=== PATIENT | female | born 1990 | race Hispanic/Latino ===

== ENCOUNTER 2019-01-30 04:08 | Observation (INO) | payer OTHER ==
[2019-01-30 05:39] LABS: Basophils % (Auto) 0.3 % (0.0-1.8); Eosinophils # (Auto) 0.2 K/mm3 (0.0-0.4); Eosinophils % (Auto) 3.3 % (0.0-4.3); Hematocrit 40.4 % (30.3-42.9); Hemoglobin 13.9 gm/dl (10.1-14.3); Lymphocytes # (Auto) 1.9 K/mm3 (1.2-5.4); Lymphocytes % (Auto) 27.7 % (13.4-35.0); Mean Corpuscular HGB Conc 34 % (30-34); Mean Corpuscular Volume 91 fl (79-97); Monocytes # (Auto) 0.7 K/mm3 (0.0-0.8); Monocytes % (Auto) 10.1 % (0.0-7.3); Platelet Count 253 K/mm3 (140-440); Red Blood Count 4.45 M/mm3 (3.65-5.03); Red Cell Distribution Width 12.5 % (13.2-15.2)
[2019-01-30 05:58] LABS: BUN/Creatinine Ratio 20; Blood Urea Nitrogen 14 mg/dL (7-17); Calcium 8.9 mg/dL (8.4-10.2); Hemolysis Index 2
[2019-01-30] MEDS ORDERED: NITROGLYCERIN 2% OINT 1 GM TP ONE (06:18)
[2019-01-30] MEDS ORDERED: ASPIRIN 325 MG TAB PO ONE (06:18)
--- NOTE | 2019-01-30 06:24 | Emergency Department Report ---
HPI - General Chief Complaint: Chest Pain Time Seen by Provider: 01/30/19 06:09 - [facility] HPI: Room 7 The patient is a 28-year-old female presented with a chief complaint of chest pain. Patient states last evening at 22:00 she was awakened with pain in her back and left chest numbness radiating to the left upper extremity. Patient's describes her left chest pain is pressure like and intermittent in nature. Patient states she became short of breath with the pain but denies nausea/vomiting or diaphoresis. The patient states she took an aspirin but was unable to sleep. 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 Uterin tumor removed - Family History Family history: no significant - Social History Smoking Status: Former Smoker (none 12 years) Substance Use Type: None (denies illicit drug use), Alcohol (occasional) ED Review of Systems ROS: Stated complaint: CP/L SHOULDER PAIN Other details as noted in HPI Constitutional: denies: diaphoresis Eyes: denies: eye pain ENT: denies: throat pain Respiratory: shortness of breath Cardiovascular: chest pain Endocrine: no symptoms reported Gastrointestinal: denies: nausea, vomiting Genitourinary: denies: dysuria Musculoskeletal: back pain Neurological: denies: headache Physical Exam - Physical Exam Vital Signs: Vital Signs 01/30/19 05:25 Temperature 97.6 F Pulse Rate 68 Respiratory 15 Rate Blood Pressure 122/78 [Right] O2 Sat by Pulse 99 Oximetry Physical Exam: GENERAL: The patient is well-developed well-nourished female on a stretcher not appearing to be in acute distress. [] HEENT: Normocephalic. Atraumatic. Extraocular motions are intact. Patient has moist mucous membranes. NECK: Supple. Trachea midline CHEST/LUNGS: Clear to auscultation. There is no respiratory distress noted. HEART/CARDIOVASCULAR: Regular. There is no tachycardia. There is no gallop rub or murmur. 2+ left radial pulse ABDOMEN: Abdomen is soft, nontender. Patient has normal bowel sounds. There is no abdominal distention. SKIN: There is no rash. There is no edema. There is no diaphoresis. NEURO: The patient is awake, alert, and oriented. The patient is cooperative. The patient has no focal neurologic deficits. The patient has normal speech MUSCULOSKELETAL: There is no evidence of acute injury. ED Course Vital Signs 01/30/19 05:25 Temperature 97.6 F Pulse Rate 68 Respiratory 15 Rate Blood Pressure 122/78 [Right] O2 Sat by Pulse 99 Oximetry ED Medical Decision Making - Lab Data Result diagrams: 01/30/19 05:06 01/30/19 05:06 Laboratory Tests 01/30/19 01/30/19 01/30/19 05:06 05:06 05:06 WBC 7.0 RBC 4.45 Hgb 13.9 Hct 40.4 MCV 91 MCH 31 MCHC 34 RDW 12.5 L Plt Count 253 Lymph % (Auto) 27.7 [place] % (Auto) 10.1 H Eos % (Auto) 3.3 Baso % (Auto) 0.3 Lymph # 1.9 [place] # 0.7 Eos # 0.2 Baso # 0.0 Seg Neutrophils % 58.6 Seg Neutrophils # 4.1 D-Dimer Sodium 137 Potassium 3.9 Chloride 98.1 Carbon Dioxide 24 Anion Gap 19 BUN 14 Creatinine 0.7 Estimated GFR > 60 BUN/Creatinine Ratio 20 Glucose 116 H Calcium 8.9 Troponin T < 0.010 HCG, Qual Negative 01/30/19 01/30/19 07:14 07:14 WBC RBC Hgb Hct MCV MCH MCHC RDW Plt Count Lymph % (Auto) [place] % (Auto) Eos % (Auto) Baso % (Auto) Lymph # [place] # Eos # Baso # Seg Neutrophils % Seg Neutrophils # D-Dimer 256.70 H Sodium Potassium Chloride Carbon Dioxide Anion Gap BUN Creatinine Estimated GFR BUN/Creatinine Ratio Glucose Calcium Troponin T < 0.010 HCG, Qual - EKG Data -: EKG Interpreted by Me EKG shows normal: sinus rhythm Rate: normal - EKG Data When compared to previous EKG there are: previous EKG unavailable Interpretation: nonspecific ST-T wave sincere (T-wave inversion in lead 3) - Radiology Data Radiology results: report reviewed (CT chest), image reviewed (chest x-ray, CT chest) interpreted by me: Chest x-ray-no focal infiltrates, no pneumothorax [facility] [address] [place] [address] Cat Scan Report Signed Patient: NILTON MAN MR#: [id number] [birth year] : 1990 Acct:[id number] Age/Sex: 28 / F ADM Date: 01/30/19 Loc: ED Attending Dr: Ordering Physician: CHANEL WRIGHT MD Date of Service: 01/30/19 Procedure(s): CT angio chest Accession Number(s): [id number] cc: CHANEL WRIGHT MD CTA CHEST WITH IV CONTRAST INDICATION: chest pain. TECHNIQUE: Axial CT images were obtained through the chest after injection of 100 cc Omnipaque 350 IV contrast. 3 plane MIP reconstructions were produced. All CT scans at this location are performed using CT dose reduction for ALARA by means of automated exposure control. 30 cc of contrast infiltrated into the right antecubital fossa during the initial injection COMPARISON: None available. FINDINGS: PULMONARY ARTERIES: No pulmonary emboli. THORACIC AORTA: No acute abnormality. HEART: Normal. CORONARY ARTERIES: No significant calcification. PLEURA: No pleural effusion. No pneumothorax. LYMPH NODES: No significant adenopathy. LUNGS: No acute air space or interstitial disease. ADDITIONAL FINDINGS: None. UPPER ABDOMEN: No acute findings. SKELETAL STRUCTURES: No significant osseous abnormality. IMPRESSION: 1. No CT evidence for pulmonary embolism. 2. No acute findings. Signer Name: Michael Alexander MD Signed: 01/30/2019 8:57 AM Workstation Name: [id number] Transcribed By: TL Dictated By: Michael Alexander MD Electronically Authenticated By: Michael Alexander MD Signed Date/Time: 01/30/19 0857 DD/ TD/TT: - Differential Diagnosis ACS, PE, GERD, pericarditis Critical care attestation.: If time is entered above; I have spent that time in minutes in the direct care of this critically ill patient, excluding procedure time. ED Disposition Clinical Impression: Chest pain Disposition: DC-09 OP ADMIT IP TO THIS HOSP Is pt being admited?: Yes Does the pt Need Aspirin: Yes Condition: Fair Instructions: Chest Pain (ED) Time of Disposition: 09:30 (Hospitalist paged)
--- NOTE | 2019-01-30 06:49 | XRay Report ---
CHEST 1 VIEW INDICATION / CLINICAL INFORMATION: Chest Pain. COMPARISON: None available. FINDINGS: SUPPORT DEVICES: None. HEART / MEDIASTINUM: No significant abnormality. LUNGS / PLEURA: No significant pulmonary or pleural abnormality. No pneumothorax. ADDITIONAL FINDINGS: No significant additional findings. IMPRESSION: 1. No acute findings. Signer Name: Donita Ann MD Signed: 01/30/2019 6:45 AM Workstation Name: [id number]
--- NOTE | 2019-01-30 09:02 | Cat Scan Report ---
CTA CHEST WITH IV CONTRAST INDICATION: chest pain. TECHNIQUE: Axial CT images were obtained through the chest after injection of 100 cc Omnipaque 350 IV contrast. 3 plane MIP reconstructions were produced. All CT scans at this location are performed using CT dose reduction for ALARA by means of automated exposure control. 30 cc of contrast infiltrated into the [facility] antecubital fossa during the initial injection COMPARISON: None available. FINDINGS: PULMONARY ARTERIES: No pulmonary emboli. THORACIC AORTA: No acute abnormality. HEART: Normal. CORONARY ARTERIES: No significant calcification. PLEURA: No pleural effusion. No pneumothorax. LYMPH NODES: No significant adenopathy. LUNGS: No acute air space or interstitial disease. ADDITIONAL FINDINGS: None. UPPER ABDOMEN: No acute findings. SKELETAL STRUCTURES: No significant osseous abnormality. IMPRESSION: 1. No CT evidence for pulmonary embolism. 2. No acute findings. Signer Name: Michael Alexander MD Signed: 01/30/2019 8:57 AM Workstation Name: [id number]
--- NOTE | 2019-01-30 10:47 | History and Physical Report ---
History of Present Illness Date of admission: 01/30/19 09:32 Chief complaint: Chest pain History of present illness: 28-year-old woman who presents to the hospital with chest pain -Stated that it started at 2200 last night in the left side of her chest radiating to her left upper extremity. Pain was 6 out of 10. And appeared to be intermittent, but constant most of the time. Denies shortness of breath, diaphoresis or radiation of the pain to any other place. Denies palpitations. Denies any heavy lifting prior to having the chest pain. -When asked further about her pain. She admits that the pain started out in her left shoulder and trying to fully extend her shoulder causes pain. The pain later radiated to her left chest and left upper back within alarmed her causing her to come to the hospital. She denies any heavy lifting or any exercise that could have strained the shoulder. But admits that she is not sure what sleeping position she had her upper extremity/shoulder in for the past few nights. She is not sure he slipped to her shoulder in a neutral position. 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 Patient states that the tumor was removed and her uterus Family history denies family history of premature coronary artery disease Social history former smoker, 12 pack years, denies smoking at present, denies illicit drug use or alcohol abuse. Medications and Allergies Allergies Allergy/AdvReac Type Severity Reaction Status Date / Time diphenhydramine Allergy Hives Verified 01/30/19 04:21 [From Benadryl] Home Medications Medication Instructions Recorded Confirmed Last Taken Type Naproxen [Naprosyn TAB] 500 mg PO Q12HR PRN tablet 01/31/19 Unknown Rx predniSONE [Deltasone] 20 mg PO QDAY tablet 01/31/19 Unknown Rx Review of Systems All systems: negative Constitutional: no fatigue Ears, nose, mouth and throat: no ear pain Breasts: no mass Cardiovascular: chest pain Respiratory: no cough Gastrointestinal: no nausea Genitourinary Female: no dyspareunia Menstruation: no ammenorrhea Rectal: no pain Musculoskeletal: no neck stiffness Integumentary: no rash Neurological: no head injury Psychiatric: no anxiety Endocrine: no cold intolerance Hematologic/Lymphatic: no easy bruising Allergic/Immunologic: no urticaria Exam - Constitutional Vitals: Temp Pulse Resp BP Pulse Ox 97.9 F 70 18 127/81 97 01/30/19 07:25 01/30/19 10:01 01/30/19 10:01 01/30/19 10:01 01/30/19 10:01 General appearance: Present: no acute distress, well-nourished - EENT Eyes: Present: PERRL ENT: hearing intact, clear oral mucosa - Neck Neck: Present: supple, normal ROM - Respiratory Respiratory effort: normal Respiratory: bilateral: CTA - Cardiovascular Heart Sounds: Present: S1 & S2. Absent: rub, click - Extremities Extremities: pulses symmetrical, No edema, abnormal (Obrien maneuver is positive and produces pain in left shoulder) Peripheral Pulses: within normal limits - Abdominal General gastrointestinal: Present: soft, non-tender, non-distended, normal bowel sounds Female genitourinary: Present: normal - Integumentary Integumentary: Present: clear, warm, dry - Musculoskeletal Musculoskeletal: gait normal, strength equal bilaterally - Psychiatric Psychiatric: appropriate mood/affect, intact judgment & insight - Neurologic Neurologic: CNII-XII intact, moves all extremities Results - Labs CBC & Chem 7: 01/30/19 05:06 01/30/19 05:06 Labs: Laboratory Last Values WBC 7.0 K/mm3 (4.5-11.0) 01/30/19 05:06 RBC 4.45 M/mm3 (3.65-5.03) 01/30/19 05:06 Hgb 13.9 gm/dl (10.1-14.3) 01/30/19 05:06 Hct 40.4 % (30.3-42.9) 01/30/19 05:06 MCV 91 fl (79-97) 01/30/19 05:06 MCH 31 pg (28-32) 01/30/19 05:06 MCHC 34 % (30-34) 01/30/19 05:06 RDW 12.5 % (13.2-15.2) L 01/30/19 05:06 Plt Count 253 K/mm3 (140-440) 01/30/19 05:06 Lymph % (Auto) 27.7 % (13.4-35.0) 01/30/19 05:06 [place] % (Auto) 10.1 % (0.0-7.3) H 01/30/19 05:06 Eos % (Auto) 3.3 % (0.0-4.3) 01/30/19 05:06 Baso % (Auto) 0.3 % (0.0-1.8) 01/30/19 05:06 Lymph # 1.9 K/mm3 (1.2-5.4) 01/30/19 05:06 [place] # 0.7 K/mm3 (0.0-0.8) 01/30/19 05:06 Eos # 0.2 K/mm3 (0.0-0.4) 01/30/19 05:06 Baso # 0.0 K/mm3 (0.0-0.1) 01/30/19 05:06 Seg Neutrophils % 58.6 % (40.0-70.0) 01/30/19 05:06 Seg Neutrophils # 4.1 K/mm3 (1.8-7.7) 01/30/19 05:06 D-Dimer 256.70 ng/mlDDU (0-234) H 01/30/19 07:14 Sodium 137 mmol/L (137-145) 01/30/19 05:06 Potassium 3.9 mmol/L (3.6-5.0) 01/30/19 05:06 Chloride 98.1 mmol/L (98-107) 01/30/19 05:06 Carbon Dioxide 24 mmol/L (22-30) 01/30/19 05:06 Anion Gap 19 mmol/L 01/30/19 05:06 BUN 14 mg/dL (7-17) 01/30/19 05:06 Creatinine 0.7 mg/dL (0.7-1.2) 01/30/19 05:06 Estimated GFR > 60 ml/min 01/30/19 05:06 BUN/Creatinine Ratio 20 % 01/30/19 05:06 Glucose 116 mg/dL (65-100) H 01/30/19 05:06 Calcium 8.9 mg/dL (8.4-10.2) 01/30/19 05:06 Troponin T < 0.010 ng/mL (0.00-0.029) 01/30/19 07:14 HCG, Qual Negative (Negative) 01/30/19 05:06 Assessment and Plan Assessment and plan: 28-year-old woman who presents with chest pain -It seems that the patient's main complaint is left shoulder pain. She became concerned because the pain and was radiating to her left chest and her left upper back. It began after she had been sleeping, she does not know what position she had her upper extremity in prior to the pain coming on. She denied any heavy lifting. She denied spraining her shoulder or doing any exercise. Labs are unremarkable except for elevated d-dimer of 256 Imaging CTA chest is negative for PE Diagnosis Chest pain, unlikely to be cardiac in origin, most likely due to shoulder strain. Have ordered pain medicines, NSAIDs and low-dose steroid. Advised patient to keep her shoulder in a neutral position when sleeping or resting. Cardiology consulted to assess if stress test is of any benefit
--- NOTE | 2019-01-30 14:38 | Consultation ---
History of Present Illness Consult date: 01/30/19 Requesting physician: MISTY TORRES Consult reason: chest pain History of present illness: Ms. Julio is a 28 y/o female with a history of a ?neck aneurysm who presented to [facility] with chest discomfort, shortness of breath and shoulder numbness that began yesterday. She describes the chest discomfort as pressure, nonradiating, with each episode lasting about 5-10 seconds. CTA negative for PE. CXR, EKG and troponins also unremarkable. Telemetry reviewed - SR in 80s. Past History Past Medical History: No medical history Medications and Allergies Allergies Allergy/AdvReac Type Severity Reaction Status Date / Time diphenhydramine Allergy Hives Verified 01/30/19 04:21 [From [facility]] Home Medications Medication Instructions Recorded Confirmed Last Taken Type Naproxen [Naprosyn TAB] 500 mg PO BID #14 tablet 01/30/19 Unknown Rx Prednisone [predniSONE 5 mg (6-Day 5 mg PO .TAPER #1 tab.ds.pk 01/30/19 Unknown Rx Pack, 21 Tabs)] Review of Systems All systems: negative Musculoskeletal: arm numbness/tingling Physical Examination Vital Signs Temp Pulse Resp BP Pulse Ox 97.6 F 68 15 122/78 99 01/30/19 05:25 01/30/19 05:25 01/30/19 05:25 01/30/19 05:25 01/30/19 05:25 General appearance: no acute distress HEENT: Positive: PERRL Neck: Positive: neck supple Cardiac: Positive: Reg Rate and Rhythm Lungs: Positive: Normal Exam Neuro: Positive: Grossly Intact Abdomen: Positive: Unremarkable Female genitourinary: deferred Skin: Positive: Clear Musculoskeletal: Normal Range of Motion Extremities: Present: normal Results 01/30/19 05:06 01/30/19 05:06 CBC 01/30/19 Range/Units 05:06 WBC 7.0 (4.5-11.0) K/mm3 RBC 4.45 (3.65-5.03) M/mm3 Hgb 13.9 (10.1-14.3) gm/dl Hct 40.4 (30.3-42.9) % Plt Count 253 (140-440) K/mm3 Lymph # 1.9 (1.2-5.4) K/mm3 [place] # 0.7 (0.0-0.8) K/mm3 Eos # 0.2 (0.0-0.4) K/mm3 Baso # 0.0 (0.0-0.1) K/mm3 Comprehensive Metabolic Panel 01/30/19 Range/Units 05:06 Sodium 137 (137-145) mmol/L Potassium 3.9 (3.6-5.0) mmol/L Chloride 98.1 (98-107) mmol/L Carbon Dioxide 24 (22-30) mmol/L BUN 14 (7-17) mg/dL Creatinine 0.7 (0.7-1.2) mg/dL Glucose 116 H (65-100) mg/dL Calcium 8.9 (8.4-10.2) mg/dL - EKG Interpretation EKG: sinus rhythm EKG interpretations - Telemetry EKG Rhythm: Sinus Rhythm Assessment and Plan The patient is a 28 y/o female admitted with chest discomfort and shoulder numbness, which does not appear to be cardiac in nature. However, will schedule a treadmill stress test to further evaluate for ischemia. The patient has been seen in conjunction with Dr. Randolph, who agrees with the assessment and plan. - Patient Problems (1) Atypical chest pain Current Visit: Yes Status: Acute (2) Numbness Current Visit: Yes Status: Acute Plan to address problem: left shoulder
[2019-01-31] MEDS ORDERED: NAPROXEN 500 MG TAB PO PRN (10:00)
[2019-01-31] MEDS ORDERED: predniSONE 20 MG TAB PO SCH (10:00)
[2019-01-31 11:36] VITALS: BP 113/73
--- NOTE | 2019-01-31 13:27 | Progress Note ---
Assessment and Plan S/p treadmill stress test this AM which was negative. Chest pain currently resolved. DDimer minimally elevated - Chest CTA negative for PE, NAF. Currently stable cardiac status. Pt may discharge home from cardiology standpoint. Recommend follow up in our office with Dr. Randolph within 1-2 weeks of hospital discharge ([phone]). The patient has been seen in conjunction with Dr. Washington who agrees with the assessment and plan of care. - Patient Problems (1) Atypical chest pain Current Visit: Yes Status: Resolved (2) Numbness Current Visit: Yes Status: Acute Plan to address problem: left shoulder Subjective Date of service: 01/31/19 Principal diagnosis: cp Interval history: pt for stress test, no current complaints. in SR overnight. Objective Last Vital Signs Temp 98.7 F 01/31/19 11:31 Pulse 81 01/31/19 11:31 Resp 18 01/31/19 11:31 BP 113/73 01/31/19 11:31 Pulse Ox 93 01/31/19 11:31 - Physical Examination General: No Apparent Distress HEENT: Positive: PERRL Neck: Positive: neck supple Cardiac: Positive: Reg Rate and Rhythm, S1/S2 Lungs: Positive: Decreased Breath Sounds Neuro: Positive: Grossly Intact Abdomen: Positive: Unremarkable Skin: Positive: Clear Musculoskeletal: Normal Range of Motion Extremities: Present: normal - Imaging and Cardiology EKG: report reviewed, image reviewed - Telemetry EKG Rhythm: Sinus Rhythm
--- NOTE | 2019-01-31 13:27 | Event Note ---
Date: 01/31/19 Treadmill stress test performed, Results were negative. After which patient was discharged.
--- NOTE | 2019-02-01 00:50 | Treadmill Report ---
TREADMILL STRESS TEST REPORT REASON FOR STUDY: Chest pain. STRESS TEST PROTOCOL: The patient completed 8 minutes and 52 seconds of a Ebenezer protocol. She attained a peak heart rate of 166 per minute, which is 87% of age-predicted maximum (10.2 mets). No ischemic ECG changes. No chest pain. No arrhythmias. The test was terminated due to fatigue. IMPRESSION: Negative stress test. No evidence of stress-induced ischemia. JOB# [id number] KD/KIET HERNANDEZ
== END 2019-01-31 15:52 | disposition home or self-care (01) ==
LOC: ED 04:08 → 4A 09:32
PROVIDERS: ADMIT Internal Medicine; ATTEND Internal Medicine
DX: R07.89 Other chest pain (principal); R20.0 Anesthesia of skin
CPT/HCPCS: 36415; 71045; 71275; 80048; 84484; 84703; 85025; 85379; 93005; 93010; 93017; 93306; 99284; G0378; J7512; Q9967